=== PATIENT | male | born 1975 | race African-American/Black ===

== ENCOUNTER 2022-07-27 09:26 | Inpatient (IN) | payer OTHER ==
[2022-07-27 10:09] VITALS: BMI 35.2
[2022-07-27] MEDS ORDERED: MAG HYDROX/AL HYDROX/SIMETH 30 ML UNIT-DOSE CUP PO PRN (10:44)
[2022-07-27] MEDS ORDERED: NICOTINE 10 MG CARTRIDGE (INHALER) IH PRN (10:44)
[2022-07-27] MEDS ORDERED: IBUPROFEN 400 MG TABLET (FP) PO PRN (10:44)
[2022-07-27] MEDS ORDERED: LOPERAMIDE HCL 2 MG CAPSULE PO PRN (10:44)
[2022-07-27] MEDS ORDERED: POLYETHYLENE GLYCOL (HEALTHYLAX) 3350 17 GM PACKET PO PRN (10:44)
[2022-07-27] MEDS ORDERED: guaiFENesin 200 MG/10 ML 10 ML UNIT-DOSE CUPS PO PRN (10:44)
[2022-07-27] MEDS ORDERED: hydrOXYzine PAMOATE 25 MG CAPSULE (FP) PO PRN (10:44)
[2022-07-27] MEDS ORDERED: MAGNESIUM HYDROX 2400MG/30ML ORAL SUSPENSION 30 ML CUP PO PRN (10:44)
[2022-07-27] MEDS ORDERED: ACETAMINOPHEN 325 MG TABLET (FP) PO PRN (10:44)
[2022-07-27] MEDS ORDERED: BENZOCAINE/MENTHOL (CHLORASEPTIC ) LOZENGE MM PRN (10:44)
[2022-07-27] MEDS ORDERED: ALBUTEROL SO4 HFA INHALER IH PRN (10:46)
[2022-07-27] MEDS: NICOTINE 14 MG/24 HOURS TOPICAL PATCH TD SCH (14:53)
[2022-07-27] MEDS ORDERED: TUBERCULIN PPD 5 TU/0.1ML VIAL ID ONE (14:59)
[2022-07-27] MEDS: INSULIN SLIDING SCALE (NOVOLOG) 1 VIAL SQ SCH ×3 (15:03→21:06)
[2022-07-27 15:33] VITALS: RESP 18
[2022-07-27 20:37] LABS: EPI CELLS 19 /uL (0-25.1); HYALINE CASTS 0 /uL (0-3.1); URINE APPEARANCE CLEAR; URINE BACTERIA 12 /uL (0-1359); URINE BILIRUBIN NEGATIVE (NEGATIVE); URINE COLOR YELLOW; URINE GLUCOSE (UA) 3+ (NEGATIVE); URINE KETONE TRACE (NEGATIVE); URINE LEUK ESTERASE NEGATIVE (NEGATIVE); URINE NITRITE NEGATIVE (NEGATIVE); URINE PROTEIN NEGATIVE (NEGATIVE); URINE RBC 8 /uL (0-23.9); URINE UROBILINOGEN 0.2 mg/dL (0.2-1.0); URINE WBC 20 /uL (0-25.8)
[2022-07-27] MEDS: THIAMINE HCL 100 MG TABLET (FP) PO SCH (21:08)
[2022-07-27] MEDS: MELATONIN 5 MG TABLETS PO SCH (21:11)
[2022-07-27] MEDS: risperiDONE 1 MG TABLET PO SCH (21:11)
[2022-07-27] MEDS: FAMOTIDINE 20 MG TABLET PO SCH (21:11)
[2022-07-27] MEDS: DIVALPROEX SODIUM 500 MG TABLET E.C. PO SCH (21:11)
[2022-07-28] MEDS: INSULIN SLIDING SCALE (NOVOLOG) 1 VIAL SQ SCH ×4 (06:11→21:09)
[2022-07-28] MEDS: risperiDONE 1 MG TABLET PO SCH ×2 (10:07→21:06)
[2022-07-28] MEDS: NICOTINE 14 MG/24 HOURS TOPICAL PATCH TD SCH (10:07)
[2022-07-28] MEDS: FAMOTIDINE 20 MG TABLET PO SCH ×2 (10:07→21:06)
[2022-07-28] MEDS: PRENATAL VITAMINS W/ FOLIC ACID TABLET (FP) PO SCH (10:07)
[2022-07-28] MEDS: NICOTINE POLACRILEX 2 MG GUM BC PRN (10:08)
[2022-07-28 11:43] LABS: HEMATOCRIT 43.3 % (35.4-49); HEMOGLOBIN 14.2 GM/dL (11.7-16.9); MCH 27.3 pg (25.7-33.7); MCHC 32.7 g/dl (32.0-35.9); MEAN CELL VOLUME 83.3 fl (80-96); MEAN PLT VOLUME 9.3 fl (7.5-11.1); PLATELET COUNT 266 10^3/uL (134-434); RDW 14.8 % (11.9-15.9); WHITE BLOOD COUNT 10.4 K/mm3 (4.0-10.0)
[2022-07-28 12:14] LABS: CALCIUM 9.2 mg/dL (8.5-10.1)
[2022-07-28 12:15] LABS: ALBUMIN 3.4 g/dl (3.4-5.0); BLOOD UREA NITROGEN 10.4 mg/dL (7-18)
[2022-07-28 12:19] LABS: BILIRUBIN,TOTAL 0.6 mg/dL (0.2-1)
[2022-07-28 12:20] LABS: TOT PROT 6.9 g/dl (6.4-8.2)
[2022-07-28 12:34] LABS: SYPHILIS W/ RPR CONF NON-REACTIVE (NONREACTIVE)
[2022-07-28] MEDS: DIVALPROEX SODIUM 500 MG TABLET E.C. PO SCH (21:06)
[2022-07-28] MEDS: THIAMINE HCL 100 MG TABLET (FP) PO SCH (21:06)
[2022-07-28] MEDS: MELATONIN 5 MG TABLETS PO SCH (21:06)
[2022-07-29] MEDS: INSULIN SLIDING SCALE (NOVOLOG) 1 VIAL SQ SCH ×4 (06:09→21:34)
[2022-07-29] MEDS: NICOTINE POLACRILEX 2 MG GUM BC PRN ×2 (06:09→09:54)
[2022-07-29] MEDS: PRENATAL VITAMINS W/ FOLIC ACID TABLET (FP) PO SCH (09:53)
[2022-07-29] MEDS: NICOTINE 14 MG/24 HOURS TOPICAL PATCH TD SCH (09:53)
[2022-07-29] MEDS: risperiDONE 1 MG TABLET PO SCH ×2 (09:53→21:32)
[2022-07-29] MEDS: FAMOTIDINE 20 MG TABLET PO SCH ×2 (09:53→21:33)
[2022-07-29] MEDS: DIVALPROEX SODIUM 500 MG TABLET E.C. PO SCH (21:32)
[2022-07-29] MEDS: THIAMINE HCL 100 MG TABLET (FP) PO SCH (21:32)
[2022-07-29] MEDS: MELATONIN 5 MG TABLETS PO SCH (21:33)
[2022-07-30] MEDS: INSULIN SLIDING SCALE (NOVOLOG) 1 VIAL SQ SCH ×4 (06:41→21:22)
[2022-07-30] MEDS: NICOTINE 14 MG/24 HOURS TOPICAL PATCH TD SCH (10:17)
[2022-07-30] MEDS: PRENATAL VITAMINS W/ FOLIC ACID TABLET (FP) PO SCH (10:17)
[2022-07-30] MEDS: FAMOTIDINE 20 MG TABLET PO SCH ×2 (10:18→21:24)
[2022-07-30] MEDS: risperiDONE 1 MG TABLET PO SCH ×2 (10:18→21:24)
[2022-07-30] MEDS: NICOTINE POLACRILEX 2 MG GUM BC PRN (10:20)
[2022-07-30] MEDS: THIAMINE HCL 100 MG TABLET (FP) PO SCH (21:24)
[2022-07-30] MEDS: MELATONIN 5 MG TABLETS PO SCH (21:24)
[2022-07-30] MEDS: DIVALPROEX SODIUM 500 MG TABLET E.C. PO SCH (21:24)
[2022-07-31] MEDS ORDERED: INSULIN (NOVOLOG) ASPART 100 UNITS/ML 10ML VIAL ONE (04:33)
[2022-07-31] MEDS: INSULIN SLIDING SCALE (NOVOLOG) 1 VIAL SQ SCH ×2 (06:19→11:59)
[2022-07-31 07:01] VITALS: TEMP 97.2
[2022-07-31] MEDS: PRENATAL VITAMINS W/ FOLIC ACID TABLET (FP) PO SCH (09:41)
[2022-07-31] MEDS: NICOTINE 14 MG/24 HOURS TOPICAL PATCH TD SCH (09:41)
[2022-07-31] MEDS: FAMOTIDINE 20 MG TABLET PO SCH (09:41)
[2022-07-31] MEDS: risperiDONE 1 MG TABLET PO SCH (09:42)
[2022-07-31] MEDS ORDERED: COLLOIDAL OATMEAL 1 BAR EACH TP PRN (10:18)
[2022-07-31 15:44] VITALS: BP 134/82; PULSE 99
== END 2022-07-31 15:59 | disposition home or self-care (01) | DRG 772 ==
LOC: YASAS 09:26 → Y5N 12:57
PROVIDERS: ADMIT Allergy & Immunology; ATTEND Allergy & Immunology
PROC: HZ42ZZZ Group Counseling for Substance Abuse Treatment, Cognitive-Behavioral (ICD-10-PCS; principal; 2022-07-27)
DX: F16.20 Hallucinogen dependence, uncomplicated (principal); F10.20 Alcohol dependence, uncomplicated; F12.20 Cannabis dependence, uncomplicated; F17.210 Nicotine dependence, cigarettes, uncomplicated; F25.0 Schizoaffective disorder, bipolar type; I10 Essential (primary) hypertension; J45.20 Mild intermittent asthma, uncomplicated; K21.9 Gastro-esophageal reflux disease without esophagitis; E11.9 Type 2 diabetes mellitus without complications; Z79.4 Long term (current) use of insulin; Z62.810 Personal history of physical and sexual abuse in childhood; E66.9 Obesity, unspecified; Z68.35 Body mass index [BMI] 35.0-35.9, adult; Z86.19 Personal history of other infectious and parasitic diseases
CPT/HCPCS: 36415; 80053; 80164; 81003; 82962; 85027; 86780; 86803; 87811; 93005; 93010; C9803-CS; U0003; U0005

== ENCOUNTER 2023-03-14 10:09 | Inpatient (IN) | payer OTHER ==
[2023-03-14 10:49] VITALS: BMI 34.2
[2023-03-14] MEDS ORDERED: NALOXONE HCL 0.4 MG/ML VIAL IM PRN (11:28)
[2023-03-14] MEDS ORDERED: ACETAMINOPHEN 325 MG TABLET (FP) PO PRN (11:28)
[2023-03-14] MEDS ORDERED: METHOCARBAMOL 500 MG TABLET PO PRN (11:28)
[2023-03-14] MEDS ORDERED: BENZONATATE 200 MG CAPSULE PO PRN (11:28)
[2023-03-14] MEDS ORDERED: BISMUTH SUBSALICYLATE 524 MG/30 ML PO PRN (11:28)
[2023-03-14] MEDS ORDERED: BENZOCAINE/MENTHOL (CHLORASEPTIC ) LOZENGE MM PRN (11:28)
[2023-03-14] MEDS ORDERED: MAG HYDROX/AL HYDROX/SIMETH 30 ML UNIT-DOSE CUP PO PRN (11:28)
[2023-03-14] MEDS ORDERED: ONDANSETRON *ODT* 4 MG TABLET SL PRN (11:28)
[2023-03-14] MEDS ORDERED: chlordiazePOXIDE HCL 25 MG CAPSULE PO ONE (11:28)
[2023-03-14] MEDS ORDERED: MAGNESIUM HYDROX 2400MG/30ML ORAL SUSPENSION 30 ML CUP PO PRN (11:28)
[2023-03-14] MEDS ORDERED: NALOXONE HCL (KLOXXADO) 8 MG SPRAY NS PRN (11:28)
[2023-03-14] MEDS ORDERED: LOPERAMIDE HCL 2 MG CAPSULE PO PRN (11:28)
[2023-03-14] MEDS ORDERED: chlordiazePOXIDE HCL 25 MG CAPSULE PO PRN (11:28)
[2023-03-14] MEDS ORDERED: POLYETHYLENE GLYCOL (HEALTHYLAX) 3350 17 GM PACKET PO PRN (11:28)
[2023-03-14] MEDS ORDERED: hydrOXYzine PAMOATE 25 MG CAPSULE (FP) PO PRN (11:28)
[2023-03-14] MEDS ORDERED: IBUPROFEN 400 MG TABLET (FP) PO PRN (11:28)
[2023-03-14] MEDS ORDERED: DICYCLOMINE HCL 10 MG CAPSULE PO PRN (11:28)
[2023-03-14] MEDS ORDERED: IBUPROFEN 600 MG TABLET (FP) PO PRN (11:28)
[2023-03-14] MEDS ORDERED: guaiFENesin 600 MG TABLET.ER (FP) PO PRN (11:28)
[2023-03-14] MEDS: PRENATAL VITAMINS W/ FOLIC ACID TABLET (FP) PO SCH (11:54)
[2023-03-14] MEDS ORDERED: PRENATAL VITAMINS W/ FOLIC ACID TABLET (FP) PO ONE (11:56)
[2023-03-14] MEDS ORDERED: chlordiazePOXIDE HCL 25 MG CAPSULE ONE (11:56)
[2023-03-14] MEDS: NICOTINE 14 MG/24 HOURS TOPICAL PATCH TD SCH (11:58)
[2023-03-14] MEDS ORDERED: NICOTINE 14 MG/24 HOURS TOPICAL PATCH TD ONE (11:59)
[2023-03-14] MEDS ORDERED: NICOTINE POLACRILEX 2 MG GUM BUC PRN (12:44)
[2023-03-14] MEDS: INSULIN SLIDING SCALE (NOVOLOG) 1 VIAL SQ SCH (17:30)
[2023-03-14] MEDS: CIPROFLOXACIN 0.3% EYE DROPS 5 ML BOTTLE OU SCH (17:30)
[2023-03-14] MEDS: chlordiazePOXIDE HCL 25 MG CAPSULE PO SCH ×2 (17:56→22:47)
[2023-03-14] MEDS: DIVALPROEX SODIUM 500 MG TABLET E.C. PO SCH (22:55)
[2023-03-14] MEDS: MICONAZOLE NITRATE 28 GM TUBE TP SCH (22:55)
[2023-03-14] MEDS: risperiDONE 1 MG TABLET PO SCH (22:55)
[2023-03-14] MEDS: INSULIN (LEVEMIR) 100 UNITS/ML UNITS SQ SCH (22:55)
[2023-03-14] MEDS: MELATONIN 5 MG TABLETS PO SCH (22:56)
[2023-03-14] MEDS: THIAMINE HCL 100 MG TABLET (FP) PO SCH (22:56)
[2023-03-15] MEDS: chlordiazePOXIDE HCL 25 MG CAPSULE PO SCH ×4 (05:55→22:13)
[2023-03-15] MEDS: INSULIN SLIDING SCALE (NOVOLOG) 1 VIAL SQ SCH ×3 (06:39→17:37)
[2023-03-15 09:23] LABS: HEMOGLOBIN 14.4 GM/dL (11.7-16.9); MCH 27.6 pg (25.7-33.7); MCHC 33.6 g/dl (32.0-35.9); MEAN CELL VOLUME 82.2 fl (80-96); MEAN PLT VOLUME 9.3 fl (7.5-11.1); PLATELET COUNT 258 10^3/uL (134-434); RBC 5.22 M/mm3 (4.00-5.60); RDW 15.1 % (11.9-15.9); WHITE BLOOD COUNT 8.6 K/mm3 (4.0-10.0)
[2023-03-15 09:58] LABS: ALBUMIN 3.3 g/dl (3.4-5.0); BLOOD UREA NITROGEN 12.2 mg/dL (7-18); CALCIUM 8.7 mg/dL (8.5-10.1)
[2023-03-15 09:59] LABS: TOT PROT 6.7 g/dl (6.4-8.2)
[2023-03-15] MEDS ORDERED: CIPROFLOXACIN 0.3% EYE DROPS 5 ML BOTTLE OU SCH (10:00)
[2023-03-15 10:01] LABS: BILIRUBIN,TOTAL 0.1 mg/dL (0.2-1)
[2023-03-15 10:02] LABS: CREATININE 0.9 mg/dL (0.55-1.3)
[2023-03-15] MEDS: PRENATAL VITAMINS W/ FOLIC ACID TABLET (FP) PO SCH (10:48)
[2023-03-15] MEDS: CIPROFLOXACIN 0.3% EYE DROPS 5 ML BOTTLE OU SCH (10:49)
[2023-03-15] MEDS: MICONAZOLE NITRATE 28 GM TUBE TP SCH ×2 (10:50→22:09)
[2023-03-15] MEDS: ATORVASTATIN CA 10 MG TABLET (FP) PO SCH (10:50)
[2023-03-15] MEDS: LISINOPRIL 20 MG TABLET PO SCH (10:50)
[2023-03-15] MEDS: NICOTINE 14 MG/24 HOURS TOPICAL PATCH TD SCH (10:57)
[2023-03-15 11:32] LABS: POTASSIUM 3.7 mmol/L (3.5-5.1)
[2023-03-15] MEDS ORDERED: INSULIN SLIDING SCALE (NOVOLOG) 1 VIAL SQ ONE ×2 (13:25→16:56)
[2023-03-15] MEDS: LACTULOSE 20 GM/30 ML UDC (FOR ORAL USE ONLY) PO SCH ×2 (15:25→22:10)
[2023-03-15] MEDS: MELATONIN 5 MG TABLETS PO SCH (22:09)
[2023-03-15] MEDS: risperiDONE 1 MG TABLET PO SCH (22:09)
[2023-03-15] MEDS: THIAMINE HCL 100 MG TABLET (FP) PO SCH (22:09)
[2023-03-15] MEDS: INSULIN (LEVEMIR) 100 UNITS/ML UNITS SQ SCH (22:10)
[2023-03-15] MEDS: DIVALPROEX SODIUM 500 MG TABLET E.C. PO SCH (22:10)
[2023-03-16] MEDS: chlordiazePOXIDE HCL 25 MG CAPSULE PO SCH ×2 (05:47→10:39)
[2023-03-16] MEDS: LACTULOSE 20 GM/30 ML UDC (FOR ORAL USE ONLY) PO SCH ×2 (05:48→13:34)
[2023-03-16] MEDS: INSULIN SLIDING SCALE (NOVOLOG) 1 VIAL SQ SCH ×2 (06:41→11:34)
[2023-03-16 09:55] VITALS: RESP 20
[2023-03-16] MEDS: ATORVASTATIN CA 10 MG TABLET (FP) PO SCH (10:37)
[2023-03-16] MEDS: LISINOPRIL 20 MG TABLET PO SCH (10:38)
[2023-03-16] MEDS: MICONAZOLE NITRATE 28 GM TUBE TP SCH (10:38)
[2023-03-16] MEDS: PRENATAL VITAMINS W/ FOLIC ACID TABLET (FP) PO SCH (10:38)
[2023-03-16] MEDS: NICOTINE 14 MG/24 HOURS TOPICAL PATCH TD SCH (10:39)
[2023-03-16] MEDS: CIPROFLOXACIN 0.3% EYE DROPS 5 ML BOTTLE OU SCH (10:39)
[2023-03-16] MEDS ORDERED: INSULIN SLIDING SCALE (NOVOLOG) 1 VIAL SQ ONE (11:38)
[2023-03-16 13:20] VITALS: BP 125/70; PULSE 86; TEMP 97.3
[2023-03-17] MEDS ORDERED: chlordiazePOXIDE HCL 10 MG CAPSULE PO PRN
[2023-03-17] MEDS ORDERED: chlordiazePOXIDE HCL 10 MG CAPSULE PO SCH (05:00)
[2023-03-18] MEDS ORDERED: chlordiazePOXIDE HCL 10 MG CAPSULE PO SCH (05:00)
[2023-03-19] MEDS ORDERED: chlordiazePOXIDE HCL 10 MG CAPSULE PO ONE (05:00)
== END 2023-03-16 13:35 | disposition left against medical advice (07) | DRG 770 ==
LOC: YASAS 10:09 → Y3N 11:36
PROVIDERS: ADMIT Allergy & Immunology; ATTEND Surgery
PROC: HZ2ZZZZ Detoxification Services for Substance Abuse Treatment (ICD-10-PCS; principal; 2023-03-14)
DX: F10.230 Alcohol dependence with withdrawal, uncomplicated (principal); F16.20 Hallucinogen dependence, uncomplicated; F17.210 Nicotine dependence, cigarettes, uncomplicated; F25.0 Schizoaffective disorder, bipolar type; I10 Essential (primary) hypertension; K21.9 Gastro-esophageal reflux disease without esophagitis; R56.1 Post traumatic seizures; E11.9 Type 2 diabetes mellitus without complications; Z79.4 Long term (current) use of insulin; Z62.810 Personal history of physical and sexual abuse in childhood; Z86.19 Personal history of other infectious and parasitic diseases
CPT/HCPCS: 36415; 80053; 80164; 82140; 82962; 85027; 86780; 87635; 87811

== ENCOUNTER 2023-06-08 20:24 | Inpatient (IN) | payer OTHER ==
[2023-06-08 21:33] VITALS: BMI 33.9
[2023-06-08] MEDS ORDERED: diazePAM 5 MG TABLET PO PRN (21:59)
[2023-06-08] MEDS ORDERED: P-EPHED 60MG/TRIPROLIDI 2.5MG TABLET PO PRN (22:01)
[2023-06-08] MEDS ORDERED: hydrOXYzine PAMOATE 25 MG CAPSULE (FP) PO PRN (22:01)
[2023-06-08] MEDS ORDERED: NICOTINE POLACRILEX 2 MG GUM BUC PRN (22:01)
[2023-06-08] MEDS ORDERED: guaiFENesin 600 MG TABLET.ER (FP) PO PRN (22:01)
[2023-06-08] MEDS ORDERED: IBUPROFEN 400 MG TABLET (FP) PO PRN (22:01)
[2023-06-08] MEDS ORDERED: MAG HYDROX/AL HYDROX/SIMETH 30 ML UNIT-DOSE CUP PO PRN (22:01)
[2023-06-08] MEDS ORDERED: BENZOCAINE/MENTHOL (CHLORASEPTIC ) LOZENGE MM PRN (22:01)
[2023-06-08] MEDS ORDERED: METHOCARBAMOL 500 MG TABLET PO PRN (22:01)
[2023-06-08] MEDS ORDERED: BISMUTH SUBSALICYLATE 524 MG/30 ML PO PRN (22:01)
[2023-06-08] MEDS ORDERED: IBUPROFEN 600 MG TABLET (FP) PO PRN (22:01)
[2023-06-08] MEDS ORDERED: ACETAMINOPHEN 325 MG TABLET (FP) PO PRN (22:01)
[2023-06-08] MEDS ORDERED: ONDANSETRON *ODT* 4 MG TABLET SL PRN (22:01)
[2023-06-08] MEDS ORDERED: MAGNESIUM HYDROX 2400MG/30ML ORAL SUSPENSION 30 ML CUP PO PRN (22:01)
[2023-06-08] MEDS ORDERED: DICYCLOMINE HCL 10 MG CAPSULE PO PRN (22:01)
[2023-06-08] MEDS ORDERED: LOPERAMIDE HCL 2 MG CAPSULE PO PRN (22:01)
[2023-06-08] MEDS ORDERED: BENZONATATE 200 MG CAPSULE PO PRN (22:01)
[2023-06-08] MEDS ORDERED: POLYETHYLENE GLYCOL (HEALTHYLAX) 3350 17 GM PACKET PO PRN (22:01)
[2023-06-08] MEDS: INSULIN ASPART SLIDING SCALE (NOVOLOG) 1 VIAL SQ SCH (23:31)
[2023-06-08] MEDS ORDERED: INSULIN (NOVOLOG) ASPART 100 UNITS/ML 10ML VIAL ONE (23:33)
[2023-06-09] MEDS: diazePAM 5 MG TABLET PO SCH ×5 (00:01→22:43)
[2023-06-09] MEDS: INSULIN ASPART SLIDING SCALE (NOVOLOG) 1 VIAL SQ SCH ×4 (07:11→22:41)
[2023-06-09 09:35] LABS: HEMATOCRIT 45.8 % (35.4-49); HEMOGLOBIN 14.8 GM/dL (11.7-16.9); MCHC 32.3 g/dl (32.0-35.9); MEAN CELL VOLUME 83.5 fl (80-96); MEAN PLT VOLUME 8.8 fl (7.5-11.1); PLATELET COUNT 246 10^3/uL (134-434); RBC 5.49 M/mm3 (4.00-5.60); RDW 14.9 % (11.9-15.9)
[2023-06-09 09:39] LABS: CHLORIDE 104 mmol/L (98-107); POTASSIUM 4.1 mmol/L (3.5-5.1); SODIUM 140 mmol/L (136-145)
[2023-06-09 09:52] LABS: ALBUMIN 3.2 g/dl (3.4-5.0); ANION GAP 5 mmol/L (4-13); BLOOD UREA NITROGEN 16.4 mg/dL (7-18); CALCIUM 8.8 mg/dL (8.5-10.1); CO2 31 mmol/L (21-32); GLUCOSE,RANDOM 119 mg/dL (74-106)
[2023-06-09 09:54] LABS: SGPT/ALT 40 U/L (13-61)
[2023-06-09 09:55] LABS: CREATININE 0.9 mg/dL (0.55-1.3); SGOT/AST 20 U/L (15-37)
[2023-06-09 09:56] LABS: BILIRUBIN,TOTAL 0.2 mg/dL (0.2-1); TOT PROT 6.8 g/dl (6.4-8.2)
[2023-06-09 09:57] LABS: ALK PHOS 91 U/L (45-117)
[2023-06-09] MEDS: PRENATAL VITAMINS W/ FOLIC ACID TABLET (FP) PO SCH (10:43)
[2023-06-09] MEDS ORDERED: INSULIN ASPART SLIDING SCALE (NOVOLOG) 1 VIAL SQ ONE (17:10)
[2023-06-09] MEDS: risperiDONE 1 MG TABLET PO SCH (22:44)
[2023-06-09] MEDS: MELATONIN 5 MG TABLETS PO SCH (22:44)
[2023-06-09] MEDS: THIAMINE HCL 100 MG TABLET (FP) PO SCH (22:44)
[2023-06-09] MEDS: DIVALPROEX SODIUM 500 MG TABLET E.C. PO SCH (22:44)
[2023-06-10] MEDS: diazePAM 5 MG TABLET PO SCH ×3 (05:41→22:31)
[2023-06-10] MEDS: INSULIN ASPART SLIDING SCALE (NOVOLOG) 1 VIAL SQ SCH ×4 (07:17→22:33)
[2023-06-10] MEDS: risperiDONE 1 MG TABLET PO SCH ×2 (10:17→22:31)
[2023-06-10] MEDS: PRENATAL VITAMINS W/ FOLIC ACID TABLET (FP) PO SCH (10:17)
[2023-06-10] MEDS: MELATONIN 5 MG TABLETS PO SCH (22:31)
[2023-06-10] MEDS: THIAMINE HCL 100 MG TABLET (FP) PO SCH (22:31)
[2023-06-10] MEDS: DIVALPROEX SODIUM 500 MG TABLET E.C. PO SCH (22:31)
[2023-06-11] MEDS ORDERED: diazePAM 5 MG TABLET PO SCH (06:00)
[2023-06-11] MEDS: INSULIN ASPART SLIDING SCALE (NOVOLOG) 1 VIAL SQ SCH ×2 (06:10→11:41)
[2023-06-11 09:27] VITALS: BP 110/73; PULSE 90; RESP 20; TEMP 97.7
[2023-06-11] MEDS: PRENATAL VITAMINS W/ FOLIC ACID TABLET (FP) PO SCH (10:20)
[2023-06-11] MEDS: risperiDONE 1 MG TABLET PO SCH (10:20)
[2023-06-12] MEDS ORDERED: diazePAM 5 MG TABLET PO ONE (06:00)
== END 2023-06-11 12:06 | disposition home or self-care (01) | DRG 775 ==
LOC: YASAS 20:24 → Y3N 22:33
PROVIDERS: ADMIT Allergy & Immunology; ATTEND Surgery
PROC: HZ2ZZZZ Detoxification Services for Substance Abuse Treatment (ICD-10-PCS; principal; 2023-06-08)
DX: F10.230 Alcohol dependence with withdrawal, uncomplicated (principal); F16.20 Hallucinogen dependence, uncomplicated; F12.20 Cannabis dependence, uncomplicated; F17.210 Nicotine dependence, cigarettes, uncomplicated; F25.0 Schizoaffective disorder, bipolar type; I10 Essential (primary) hypertension; E78.5 Hyperlipidemia, unspecified; E11.9 Type 2 diabetes mellitus without complications; Z79.4 Long term (current) use of insulin; J45.20 Mild intermittent asthma, uncomplicated; K21.9 Gastro-esophageal reflux disease without esophagitis; R56.1 Post traumatic seizures; Z62.810 Personal history of physical and sexual abuse in childhood
CPT/HCPCS: 0241U-QW; 36415; 80053; 80164; 80307; 82962; 85027; 86780; 87811

== ENCOUNTER 2023-07-20 16:43 | Inpatient (IN) | payer OTHER ==
[2023-07-20 18:57] VITALS: BMI 33.6
[2023-07-20] MEDS ORDERED: IBUPROFEN 400 MG TABLET (FP) PO PRN (21:32)
[2023-07-20] MEDS ORDERED: POLYETHYLENE GLYCOL (HEALTHYLAX) 3350 17 GM PACKET PO PRN (21:32)
[2023-07-20] MEDS ORDERED: MAGNESIUM HYDROX 2400MG/30ML ORAL SUSPENSION 30 ML CUP PO PRN (21:32)
[2023-07-20] MEDS ORDERED: NALOXONE HCL (KLOXXADO) 8 MG SPRAY NS PRN (21:32)
[2023-07-20] MEDS ORDERED: LOPERAMIDE HCL 2 MG CAPSULE PO PRN (21:32)
[2023-07-20] MEDS ORDERED: NICOTINE POLACRILEX 2 MG GUM BUC PRN (21:32)
[2023-07-20] MEDS ORDERED: P-EPHED 60MG/TRIPROLIDI 2.5MG TABLET PO PRN (21:32)
[2023-07-20] MEDS ORDERED: guaiFENesin 600 MG TABLET.ER (FP) PO PRN (21:32)
[2023-07-20] MEDS ORDERED: BENZOCAINE/MENTHOL (CHLORASEPTIC ) LOZENGE MM PRN (21:32)
[2023-07-20] MEDS ORDERED: MAG HYDROX/AL HYDROX/SIMETH 30 ML UNIT-DOSE CUP PO PRN (21:32)
[2023-07-20] MEDS ORDERED: NALOXONE HCL 0.4 MG/ML VIAL IM PRN (21:32)
[2023-07-20] MEDS ORDERED: BENZONATATE 200 MG CAPSULE PO PRN (21:32)
[2023-07-20] MEDS ORDERED: ACETAMINOPHEN 325 MG TABLET (FP) PO PRN (21:32)
[2023-07-21] MEDS: risperiDONE 2 MG TABLET PO ONE (00:06)
[2023-07-21] MEDS: MELATONIN 5 MG TABLETS PO SCH (03:25)
[2023-07-21] MEDS: DIVALPROEX SODIUM 500 MG TABLET E.C. PO ONE (03:25)
[2023-07-21] MEDS: THIAMINE HCL 100 MG TABLET (FP) PO SCH (05:06)
[2023-07-21] MEDS: PRENATAL VITAMINS W/ FOLIC ACID TABLET (FP) PO SCH (10:21)
[2023-07-21] MEDS: risperiDONE 1 MG TABLET PO SCH ×2 (10:21→10:23)
[2023-07-21] MEDS: IBUPROFEN 600 MG TABLET (FP) PO PRN (10:21)
[2023-07-21 11:58] LABS: CHLORIDE 110 mmol/L (98-107); POTASSIUM 4.2 mmol/L (3.5-5.1); SODIUM 144 mmol/L (136-145)
[2023-07-21 12:04] LABS: HEMATOCRIT 41.2 % (35.4-49); HEMOGLOBIN 14.1 GM/dL (11.7-16.9); MCH 28.6 pg (25.7-33.7); MCHC 34.4 g/dl (32.0-35.9); MEAN CELL VOLUME 83.3 fl (80-96); MEAN PLT VOLUME 9.4 fl (7.5-11.1); PLATELET COUNT 223 10^3/uL (134-434); RBC 4.94 M/mm3 (4.00-5.60); RDW 14.9 % (11.9-15.9); WHITE BLOOD COUNT 7.8 K/mm3 (4.0-10.0)
[2023-07-21 12:06] LABS: CREATININE 0.9 mg/dL (0.55-1.3); SGOT/AST 20 U/L (15-37)
[2023-07-21 12:07] LABS: TOT PROT 6.4 g/dl (6.4-8.2)
[2023-07-21 12:08] LABS: BILIRUBIN,TOTAL 0.1 mg/dL (0.2-1)
[2023-07-21 12:09] LABS: ALK PHOS 117 U/L (45-117)
[2023-07-21 12:12] LABS: ALBUMIN 3.3 g/dl (3.4-5.0); ANION GAP 6 mmol/L (4-13); BLOOD UREA NITROGEN 10.5 mg/dL (7-18); CO2 29 mmol/L (21-32); GLUCOSE,RANDOM 89 mg/dL (74-106)
[2023-07-21 12:15] LABS: CALCIUM 8.8 mg/dL (8.5-10.1); SGPT/ALT 27 U/L (13-61)
[2023-07-21] MEDS: hydrOXYzine PAMOATE 25 MG CAPSULE (FP) PO PRN (22:24)
[2023-07-21] MEDS: risperiDONE 2 MG TABLET PO SCH (22:24)
[2023-07-21] MEDS: DOCUSATE SODIUM 100 MG CAPSULE (FP) PO PRN (22:24)
[2023-07-21] MEDS: DIVALPROEX SODIUM 500 MG TABLET E.C. PO SCH (22:25)
[2023-07-23 10:40] VITALS: BP 140/81; PULSE 75; RESP 19; TEMP 98.6
== END 2023-07-23 11:33 | disposition left against medical advice (07) | DRG 770 ==
LOC: YASAS 16:43 → Y3NR 07-21 01:34
PROVIDERS: ADMIT Allergy & Immunology; ATTEND Psychiatry & Neurology Pain Medicine
PROC: HZ2ZZZZ Detoxification Services for Substance Abuse Treatment (ICD-10-PCS; principal; 2023-07-21)
DX: F19.20 Other psychoactive substance dependence, uncomplicated (principal); F16.20 Hallucinogen dependence, uncomplicated; F12.20 Cannabis dependence, uncomplicated; F25.0 Schizoaffective disorder, bipolar type; J45.20 Mild intermittent asthma, uncomplicated; K21.9 Gastro-esophageal reflux disease without esophagitis; R56.1 Post traumatic seizures; E11.9 Type 2 diabetes mellitus without complications; Z79.4 Long term (current) use of insulin; Z86.19 Personal history of other infectious and parasitic diseases; Z59.00 Homelessness unspecified; Z56.0 Unemployment, unspecified; Z62.810 Personal history of physical and sexual abuse in childhood; Z63.8 Other specified problems related to primary support group
CPT/HCPCS: 36415; 80053; 80164; 80305; 80307; 82962; 85027; 86780; 87635; 93005; 93010